=== PATIENT | female | born 1990 | race Caucasian/White ===

== ENCOUNTER 2021-05-28 23:33 | Emergency (ER) | payer OTHER ==
[2021-05-29 02:34] LABS: RED BLOOD COUNT 4.25 M/UL (4.00-5.10); WHITE BLOOD COUNT 6.1 K/UL (4.5-11.0)
[2021-05-29 02:56] LABS: BUN/CREATININE RATIO 13 (0-10)
== END 2021-05-29 06:47 | disposition home or self-care (01) ==
LOC: ER1 23:33
PROVIDERS: Physician Assistant
DX: U07.1 COVID-19 (principal); F17.210 Nicotine dependence, cigarettes, uncomplicated
CPT/HCPCS: 71045; 80053; 82550; 82553; 83874; 83880; 84484; 85025; 85379; 85610; 85730; 93005; 96374; 99285; J1100; Q9967; U0002